=== PATIENT | male | born 1955 | race Caucasian/White ===

== ENCOUNTER 2016-10-06 03:06 | Emergency (ER) | payer OTHER | END 2016-10-06 05:20 | disposition home or self-care (01) | LOC: ER 03:06 | DX: L03.312 Cellulitis of back [any part except buttock and flank] (principal); B02.29 Other postherpetic nervous system involvement; Z79.899 Other long term (current) drug therapy; Z79.82 Long term (current) use of aspirin; I10 Essential (primary) hypertension; K21.9 Gastro-esophageal reflux disease without esophagitis; E03.9 Hypothyroidism, unspecified | CPT/HCPCS: 87071; 87077; 87186 ==